=== PATIENT | female | born 1985 | race Caucasian/White ===

== ENCOUNTER 2018-03-25 16:21 | Emergency (ER) | payer MEDICAID ==
[~2018-03-25] VITALS: Ht 157.5 cm; Wt 50.1 kg
[~2018-03-25 16:21] MED LIST: ONDA4TAB12 PO
[2018-03-25 16:31] VITALS: BP 126/74
== END 2018-03-25 17:59 | disposition home or self-care (01) ==
LOC: ER 16:22
DX: L21.0 Seborrhea capitis (principal); F15.90 Other stimulant use, unspecified, uncomplicated; F11.90 Opioid use, unspecified, uncomplicated; F19.90 Other psychoactive substance use, unspecified, uncomplicated; Z56.0 Unemployment, unspecified; Z88.8 Allergy status to other drugs, medicaments and biological substances; Z79.899 Other long term (current) drug therapy
CPT/HCPCS: 99281